=== PATIENT | male | born 1990 | race Caucasian/White ===

== ENCOUNTER 2018-12-27 02:21 | Emergency (ER) | payer BC, MEDICAID ==
--- NOTE | 2018-12-27 02:33 | EDM.PDOCBH ---
<Michel Byrd - Last Filed: 12/27/18 06:40> ED HPI GENERAL MEDICAL PROBLEM - General Chief Complaint: Drug or Alcohol Abuse Stated Complaint: [facility] Time Seen by Provider: 12/27/18 02:21 Source of Information: Reports: EMS, EMS Notes Reviewed, Police History Limitations: Reports: Intoxication - History of Present Illness INITIAL COMMENTS - FREE TEXT/NARRATIVE: 28-year-old male was found intoxicated in public in [facility], the police were questioning him and he was unable to safely how he was going to get home or who he was with. He was too intoxicated to just leave so they sent him here. They called the ambulance who brought him in, he was stable in route. He is obviously very intoxicated but is ambulating. Onset: Unknown/Unsure denies pain Pain Score (Numeric/FACES): 0 ED ROS GENERAL - Review of Systems Review Of Systems: Unable To Obtain ED EXAM, BEHAVIORAL HEALTH - Physical Exam Exam: See Below Exam Limited By: No Limitations General Appearance: Alert, Other (Very intoxicated) Respiratory/Chest: No Respiratory Distress Cardiovascular: Regular Rate, Rhythm Neurological: Disoriented to Place Psychiatric: Alert COURSE, BEHAVIORAL HEALTH COMP - Course Vital Signs: Last Vital Signs Temp 2.5 C L 12/27/18 02:33 Pulse 87 12/27/18 02:33 Resp 15 12/27/18 02:33 BP 138/78 12/27/18 02:33 Pulse Ox 98 12/27/18 02:33 Orders, Labs, Meds: Laboratory Tests 12/27/18 12/27/18 Range/Units 02:33 02:33 Urine Opiates Screen Negative (NEGATIVE) Ur Oxycodone Screen Negative (NEGATIVE) Urine Methadone Screen Negative (NEGATIVE) Ur Propoxyphene Screen Negative (NEGATIVE) Ur Barbiturates Screen Negative (NEGATIVE) Ur Tricyclics Screen Negative (NEGATIVE) Ur Phencyclidine Scrn Negative (NEGATIVE) Ur Amphetamine Screen Presumptive positive H (NEGATIVE) U Methamphetamines Scrn Negative (NEGATIVE) Urine MDMA Screen Negative (NEGATIVE) U Benzodiazepines Scrn Negative (NEGATIVE) U Cocaine Metab Screen Negative (NEGATIVE) U Marijuana (THC) Screen Negative (NEGATIVE) Ethyl Alcohol 357 mg/dL Re-Assessment/Re-Exam: Urine drug screen and EtOH were obtained. EtOH was 0.356, urine tox screen was positive for amphetamines. He was able to give us a contact number who was apparently his employer, when he was contacted he explained that this is a recurring pattern for him. He would not offer her a ride home. Patient eventually passed out and was sleeping at shift change. He can be discharged by Dr. Cardenas when he awakes. He may possibly be amenable to detox. Departure - Departure Disposition: Home, Self-Care 01 Clinical Impression: Alcohol intoxication - Discharge Information Referrals: PCP,None [Primary Care Provider] - Forms: ED Department Discharge Additional Instructions: Avoid alcohol abuse. Treatment is available if you want it. <Baudilio Cardenas - Last Filed: 12/27/18 07:26> COURSE, BEHAVIORAL HEALTH COMP - Course Re-Assessment/Re-Exam Date: 12/27/18 Medical Clearance: 12/27/18 07:24 This man is now awake and alert. He does not want to go to detox. Someone is here to pick him up. Departure - Departure Time of Disposition: 07:25 Condition: Fair
== END 2018-12-27 07:33 | disposition home or self-care (01) ==
LOC: JP.ED 02:21
DX: F10.129 Alcohol abuse with intoxication, unspecified (principal); Y90.8 Blood alcohol level of 240 mg/100 ml or more
CPT/HCPCS: 36415; 80305-QW; 99284; G0480